=== PATIENT | male | born 1995 | race American Indian/Alaskan Native ===

== ENCOUNTER 2017-11-15 15:15 | Emergency (ER) | payer SELFPAY | END 2017-11-15 16:54 | disposition left against medical advice (07) | LOC: DL.ED 15:15 | DX: Z53.21 Procedure and treatment not carried out due to patient leaving prior to being seen by health care provider (principal) ==

== ENCOUNTER 2017-11-18 18:47 | Emergency (ER) | payer SELFPAY ==
--- NOTE | 2017-11-18 20:06 | EDM.PDOC ---
ED HPI GENERAL MEDICAL PROBLEM - General Chief Complaint: Respiratory Problem Stated Complaint: [id number] flu check Time Seen by Provider: 11/18/17 19:05 Source of Information: Reports: Patient History Limitations: Reports: No Limitations - History of Present Illness INITIAL COMMENTS - FREE TEXT/NARRATIVE: Cough x 4 days fever, chils at home, Cough productive green phlegm. Generalized Pain Score (Numeric/FACES): 7 - Related Data Allergies Allergy/AdvReac Type Severity Reaction Status Date / Time No Known Allergies Allergy Verified 11/18/17 19:00 Home Meds: Home Meds . [No Known Home Meds] 11/18/17 [History] Past Medical History - Past Surgical History HEENT Surgical History: Reports: Eye Surgery Other HEENT Surgeries/Procedures: eye surgery at age 9 Social & Family History - Family History Family Medical History: Noncontributory - Tobacco Use Smoking Status *Q: Light Tobacco Smoker Years of Tobacco use: 1 Packs/Tins Daily: 1 Used Tobacco, but Quit: No - Caffeine Use Caffeine Use: Reports: Soda - Recreational Drug Use Recreational Drug Use: No ED ROS GENERAL - Review of Systems Review Of Systems: ROS reveals no pertinent complaints other than HPI. ED EXAM, GENERAL - Physical Exam Exam: See Below Exam Limited By: No Limitations General Appearance: Alert, No Apparent Distress Eye Exam: Bilateral Eye: EOMI Ears: Normal External Exam, Normal TMs Nose: Normal Inspection. No: Nasal Drainage Throat/Mouth: Other (mild erythema) Head: Atraumatic, Normocephalic Neck: Normal Inspection, Full Range of Motion Respiratory/Chest: No Respiratory Distress, Lungs Clear, Other (ocassional dry cough) Cardiovascular: Normal Peripheral Pulses, Regular Rate, Rhythm GI/Abdominal: Normal Bowel Sounds Extremities: Normal Inspection Neurological: Alert, Oriented Psychiatric: Normal Affect, Normal Mood Skin Exam: Warm, Dry, Normal Color. No: Intact (dime size abrasion to mid upper forehead, clean dry) Course - Vital Signs Last Recorded V/S: Last Vital Signs Temp 98.3 F 11/18/17 18:52 Pulse 66 11/18/17 18:52 Resp 18 11/18/17 18:52 BP 127/87 11/18/17 18:52 Pulse Ox 98 11/18/17 18:52 - Orders/Labs/Meds Orders: Active Orders 24 hr Category Date Time Status CULTURE STREP A CONFIRMATION [RM] Stat Lab 11/18/17 18:56 Results STREP SCRN A RAPID W CULT CONF [RM] Stat Lab 11/18/17 18:56 Results Departure - Departure Time of Disposition: 20:00 Disposition: Home, Self-Care 01 Condition: Good Clinical Impression: Influenza B - Discharge Information Instructions: Influenza, Adult, [id number] Referrals: PCP,None [Primary Care Provider] - Forms: ED Department Discharge Additional Instructions: increase fluids avoid exposure to young and elderly cover mouth with coughing and sneezing Robitussin OTC per package instructions for cough - My Orders Last 24 Hours: My Active Orders 11/18/17 18:56 CULTURE STREP A CONFIRMATION [RM] Stat STREP SCRN A RAPID W CULT CONF [RM] Stat - Assessment/Plan Last 24 Hours: My Active Orders 11/18/17 18:56 CULTURE STREP A CONFIRMATION [RM] Stat STREP SCRN A RAPID W CULT CONF [RM] Stat
== END 2017-11-18 20:14 | disposition home or self-care (01) ==
LOC: DL.ED 18:47
DX: J10.1 Influenza due to other identified influenza virus with other respiratory manifestations (principal); F17.210 Nicotine dependence, cigarettes, uncomplicated
CPT/HCPCS: 87081; 87430; 87804; 99282; 99284